=== PATIENT | male | born 1960 | race Caucasian/White ===

== ENCOUNTER 2023-05-10 10:05 | Inpatient (IN) ==
[2023-05-10] MEDS ORDERED: IOPAMIDOL 100 ML BOTTLE IV ONE (10:06)
[2023-05-10] MEDS: ONDANSETRON 4 MG/2 ML VIAL IV ONE (10:12)
[2023-05-10] MEDS: fentaNYL 100 MCG/2 ML VIAL IV ONE ×2 (10:20→12:21)
[2023-05-10] MEDS: 0.9 % SODIUM CHLORIDE 1,000 ML IV ONE (10:21)
[2023-05-10] MEDS: fentaNYL 100 MCG/2 ML VIAL ONE (10:21)
[2023-05-10] MEDS: HYDROmorphone 1 MG/ML SYRINGE ONE (10:22)
[2023-05-10] MEDS: ONDANSETRON 4 MG/2 ML VIAL ONE (10:22)
[2023-05-10 10:25] LABS: POC Calcium, Ionized 1.17 (1.16-1.32); POC Creatinine 0.9 (0.6-1.2); POC Potassium 3.4 (3.3-5.1)
[2023-05-10] MEDS: ceFAZolin 1 GM VIAL IV ONE (10:28)
[2023-05-10] MEDS: fentaNYL 100 MCG/2 ML VIAL IV PRN (10:45)
[2023-05-10 11:10] LABS: Basophils # (Auto) 0.12 K/mcL (0.00-0.30); Basophils % (Auto) 0.5 % (0.0-2.0); Eosinophils % (Auto) 3.4 % (0.0-7.0); Hematocrit 43.5 % (40.1-51.0); Hemoglobin 14.1 g/dL (13.7-17.5); Lymphocytes % (Auto) 15.4 % (15.5-49.0); Mean Cell Volume 89.5 fL (80.0-100.0); Mean Corpuscular HGB Conc 32.4 g/dL (31.0-36.0); Mean Platelet Volume 10.2 fL (8.8-12.5); Monocytes # (Auto) 1.21 K/mcL (0.10-0.90); Monocytes % (Auto) 5.2 % (1.0-12.0); Neutrophils % (Auto) 74.6 % (38.0-78.0); Platelet Count 358 K/mcL (140-440); RBC 4.86 M/mcL (4.63-6.08); Red Cell Distribution Width 13.8 % (11.5-14.5); WBC 23.4 K/mcL (4.5-11.0)
[2023-05-10 11:31] LABS: ALT/SGPT 14 U/L (<40); AST/SGOT 27 U/L (<40); Albumin 4.3 gm/dL (3.2-5.2); Albumin/Globulin Ratio 1.6 (1.0-2.3); Alcohol, Blood < 10.1 mg/dL; Alcohol,Blood < 0.010 gm/dL (<0.010); Alkaline Phosphatase 94 U/L (39-117); Bilirubin,Total 0.2 mg/dL (0.1-1.0); Blood Urea Nitrogen 19 mg/dL (8-23); Calcium 8.7 mg/dL (8.6-10.4); Carbon Dioxide 20 mmol/L (22-30); Chloride 103 mmol/L (96-108); Globulin 2.7 gm/dL (2.2-3.7); Glomerular Filtration Rate 80; Glucose 185 mg/dL (70-105)
[2023-05-10 12:03] LABS: INR 0.9 (0.9-1.1); Prothrombin Time 13.2 sec (11.9-14.5)
[2023-05-10] MEDS ORDERED: ONDANSETRON 4 MG/2 ML VIAL IV PRN ×2 (12:12→15:43)
[2023-05-10] MEDS: 0.9 % SODIUM CHLORIDE 250 ML IV SCH (12:18)
[2023-05-10] MEDS: 0.9 % SODIUM CHLORIDE 1,000 ML IV SCH (12:19)
[2023-05-10] MEDS: cefTRIAXone 2 GM in DEXTROSE 5% IN WATER 50 ML IV SCH (12:20)
[2023-05-10 12:24] LABS: ABG Methemoglobin 0.1 % (0.4-1.5); Total Hemoglobin 15.1 gm/Dl (13.5-16.5); VBG Base Excess -3 (-2-3); VBG HCO3 24.2 mmol/L (24.0-28.0); VBG Oxygen Saturation 72.1 % (40.0-70.0); VBG PCO2 51.5 mmHg (41.0-51.0); VBG PH 7.29 U (7.32-7.42); VBG PO2 42.3 mmHg (25.0-40.0); VBG Total CO2 25.8 mmol/L (25.0-29.0)
[2023-05-10] MEDS: DIPH,PERTUSS(ACELL),TET VAC/PF 0.5 ML SYRINGE IM ONE ×2 (12:28→17:17)
[2023-05-10] MEDS: IPRATROPIUM/ALBUTEROL 3 ML AMPUL.NEB NEB SCH (13:00)
[2023-05-10] MEDS: HYDROmorphone 1 MG/ML SYRINGE IV PRN (13:06)
[2023-05-10] MEDS ORDERED: fentaNYL 100 MCG/2 ML VIAL ONE (13:45)
[2023-05-10] MEDS ORDERED: PROPOFOL 200 MG/20 ML VIAL IV ONE ×2 (13:46→15:52)
[2023-05-10] MEDS ORDERED: KETAMINE 50 MG/ML Syringe IV ONE (14:10)
[2023-05-10] MEDS ORDERED: ROPIVACAINE HCL/PF 30 ML VIAL IJ ONE ×2 (14:46→14:48)
[2023-05-10] MEDS ORDERED: DEXAMETHASONE 10 MG/ML VIAL ONE (14:46)
[2023-05-10] MEDS ORDERED: MIDAZOLAM 2 MG/2 ML VIAL ONE (15:13)
[2023-05-10] MEDS ORDERED: ONDANSETRON 4 MG/2 ML VIAL ONE (15:32)
[2023-05-10] MEDS ORDERED: METOCLOPRAMIDE 10 MG/2 ML VIAL IV PRN (15:43)
[2023-05-10] MEDS ORDERED: IPRATROPIUM/ALBUTEROL 3 ML AMPUL.NEB NEB PRN (15:43)
[2023-05-10] MEDS ORDERED: fentaNYL 100 MCG/2 ML VIAL IV PRN (15:43)
[2023-05-10] MEDS ORDERED: HYDROmorphone 0.5 MG/0.5 ML SYRINGE IV PRN (15:43)
[2023-05-10] MEDS ORDERED: PROMETHAZINE 25 MG/ML VIAL IV PRN (15:43)
[2023-05-10] MEDS: 0.9 % SODIUM CHLORIDE 10 ML SYRINGE IV SCH (17:18)
[2023-05-10] MEDS: LACTATED RINGERS 1,000 ML IV SCH (17:34)
[2023-05-10] MEDS: METOCLOPRAMIDE 10 MG/2 ML VIAL IV SCH (18:05)
[2023-05-10 20:45] LABS: Appearance,Urine CLEAR (Clear); Bilirubin,Urine Negative (Negative); Color,Urine STRAW; Culture Indicated,Urine Yes; Glucose,Urine (UA) 150 mg/dL (Negative); Ketones,Urine Negative (Negative); Leukocyte Esterase,Urine 25 /uL (Negative); Mucus,Urine FEW /hpf; Nitrate,Urine Negative (Negative); Protein,Urine Negative (Negative); Urine RBC 12 /hpf (0-3); Urine Squamous Epithelial Cell < 1 /hpf (0-4); Urine WBC 13 /hpf (0-4); Urobilinogen,Urine Negative
[2023-05-10 20:53] LABS: Amphetamine Screen,Urine Suspect positive; Barbiturate Screen,Urine None detected; Benzodiazepines Screen,Urine Suspect positive; Cannabinoid Screen,Urine Suspect Positive; Cocaine Screen,Urine None detected; Opiate Screen,Urine None detected; Oxycodone, Urine Screen None detected; Phencyclidine Screen,Urine None detected
[2023-05-11 07:42] LABS: Basophils # (Auto) 0.01 K/mcL (0.00-0.30); Basophils % (Auto) 0.1 % (0.0-2.0); Eosinophils # (Auto) 0 K/mcL (0.00-0.70); Eosinophils % (Auto) 0 % (0.0-7.0); Hematocrit 42.2 % (40.1-51.0); Hemoglobin 13.6 g/dL (13.7-17.5); Lymphocytes # (Auto) 0.96 K/mcL (1.50-4.80); Mean Cell Volume 89.6 fL (80.0-100.0); Mean Corpuscular HGB Conc 32.2 g/dL (31.0-36.0); Mean Platelet Volume 10.2 fL (8.8-12.5); Monocytes # (Auto) 0.91 K/mcL (0.10-0.90); Monocytes % (Auto) 6.6 % (1.0-12.0); Platelet Count 292 K/mcL (140-440); RBC 4.71 M/mcL (4.63-6.08); Red Cell Distribution Width 13.7 % (11.5-14.5); WBC 13.7 K/mcL (4.5-11.0)
[2023-05-11] MEDS: hydrALAZINE 20 MG/ML VIAL IV PRN (11:17)
[2023-05-11] MEDS ORDERED: DEXMEDETOMIDINE HCL 200 MCG/2 ML VIAL ONE (13:31)
[2023-05-11] MEDS ORDERED: ROPIVACAINE HCL/PF 30 ML VIAL IJ ONE (13:31)
[2023-05-11] MEDS ORDERED: DEXAMETHASONE 10 MG/ML VIAL ONE (13:31)
[2023-05-12 06:20] LABS: Basophils # (Auto) 0.02 K/mcL (0.00-0.30); Basophils % (Auto) 0.1 % (0.0-2.0); Eosinophils # (Auto) 0.01 K/mcL (0.00-0.70); Eosinophils % (Auto) 0.1 % (0.0-7.0); Hematocrit 40.5 % (40.1-51.0); Hemoglobin 13.1 g/dL (13.7-17.5); Lymphocytes % (Auto) 11.3 % (15.5-49.0); Mean Corpuscular HGB Conc 32.3 g/dL (31.0-36.0); Mean Platelet Volume 10.2 fL (8.8-12.5); Monocytes # (Auto) 1.38 K/mcL (0.10-0.90); Monocytes % (Auto) 8.7 % (1.0-12.0); Neutrophils % (Auto) 79.6 % (38.0-78.0); Platelet Count 286 K/mcL (140-440); Red Cell Distribution Width 14.2 % (11.5-14.5); WBC 15.9 K/mcL (4.5-11.0)
[2023-05-12 06:39] LABS: ALT/SGPT 21 U/L (<40); AST/SGOT 41 U/L (<40); Albumin 3.7 gm/dL (3.2-5.2); Albumin/Globulin Ratio 1.4 (1.0-2.3); Alkaline Phosphatase 74 U/L (39-117); Bilirubin,Direct < 0.2 mg/dL (0-0.3); Bilirubin,Total 0.4 mg/dL (0.1-1.0); Blood Urea Nitrogen 14 mg/dL (8-23); Calcium 8.6 mg/dL (8.6-10.4); Carbon Dioxide 24 mmol/L (22-30); Chloride 105 mmol/L (96-108); Globulin 2.6 gm/dL (2.2-3.7); Glomerular Filtration Rate 95; Glucose 107 mg/dL (70-105); Lactate Dehydrogenase 263 U/L (135-225); Triglycerides 74 mg/dL (<150); Uric Acid 3.7 mg/dL (2.5-8.0)
[2023-05-13 06:24] LABS: Basophils # (Auto) 0.07 K/mcL (0.00-0.30); Basophils % (Auto) 0.6 % (0.0-2.0); Eosinophils # (Auto) 0.33 K/mcL (0.00-0.70); Eosinophils % (Auto) 2.7 % (0.0-7.0); Hematocrit 39.8 % (40.1-51.0); Hemoglobin 12.5 g/dL (13.7-17.5); Lymphocytes # (Auto) 1.96 K/mcL (1.50-4.80); Lymphocytes % (Auto) 16.3 % (15.5-49.0); Mean Cell Volume 91.9 fL (80.0-100.0); Mean Corpuscular HGB Conc 31.4 g/dL (31.0-36.0); Mean Platelet Volume 9.8 fL (8.8-12.5); Monocytes # (Auto) 0.99 K/mcL (0.10-0.90); Monocytes % (Auto) 8.2 % (1.0-12.0); Platelet Count 282 K/mcL (140-440); RBC 4.33 M/mcL (4.63-6.08); Red Cell Distribution Width 14.2 % (11.5-14.5)
[2023-05-13] MEDS: METOCLOPRAMIDE 10 MG TABLET PO SCH (17:53)
[2023-05-14 06:30] LABS: Basophils # (Auto) 0.06 K/mcL (0.00-0.30); Basophils % (Auto) 0.6 % (0.0-2.0); Eosinophils % (Auto) 6.9 % (0.0-7.0); Hemoglobin 13.7 g/dL (13.7-17.5); Lymphocytes # (Auto) 1.82 K/mcL (1.50-4.80); Mean Cell Volume 89.2 fL (80.0-100.0); Mean Corpuscular HGB Conc 32.6 g/dL (31.0-36.0); Mean Platelet Volume 9.6 fL (8.8-12.5); Monocytes # (Auto) 0.81 K/mcL (0.10-0.90); Neutrophils % (Auto) 66.2 % (38.0-78.0); Platelet Count 320 K/mcL (140-440); RBC 4.71 M/mcL (4.63-6.08); Red Cell Distribution Width 13.4 % (11.5-14.5); WBC 10.1 K/mcL (4.5-11.0)
[2023-05-14] MEDS: oxyCODONE IR 5 MG TABLET PO PRN (19:20)
[2023-05-15 05:53] LABS: Basophils # (Auto) 0.06 K/mcL (0.00-0.30); Basophils % (Auto) 0.5 % (0.0-2.0); Eosinophils # (Auto) 0.71 K/mcL (0.00-0.70); Eosinophils % (Auto) 5.8 % (0.0-7.0); Hematocrit 41.6 % (40.1-51.0); Hemoglobin 13.6 g/dL (13.7-17.5); Lymphocytes # (Auto) 2.01 K/mcL (1.50-4.80); Lymphocytes % (Auto) 16.4 % (15.5-49.0); Mean Cell Volume 88.5 fL (80.0-100.0); Mean Corpuscular HGB Conc 32.7 g/dL (31.0-36.0); Mean Platelet Volume 9.4 fL (8.8-12.5); Monocytes # (Auto) 1.13 K/mcL (0.10-0.90); Monocytes % (Auto) 9.2 % (1.0-12.0); Neutrophils % (Auto) 67.9 % (38.0-78.0); Platelet Count 332 K/mcL (140-440); Red Cell Distribution Width 13.2 % (11.5-14.5); WBC 12.2 K/mcL (4.5-11.0)
[2023-05-16] MEDS: NICOTINE 21 MG PATCH TOPICAL SCH (14:06)
[2023-05-17 03:11] LABS: Amphetamine Screen Positive
[2023-05-17 07:15] LABS: ALT/SGPT 45 U/L (<40); AST/SGOT 35 U/L (<40); Albumin 3.5 gm/dL (3.2-5.2); Albumin/Globulin Ratio 1.5 (1.0-2.3); Alkaline Phosphatase 99 U/L (39-117); Bilirubin,Direct < 0.2 mg/dL (0-0.3); Bilirubin,Total 0.4 mg/dL (0.1-1.0); Blood Urea Nitrogen 17 mg/dL (8-23); Calcium 8.4 mg/dL (8.6-10.4); Carbon Dioxide 24 mmol/L (22-30); Chloride 99 mmol/L (96-108); Globulin 2.3 gm/dL (2.2-3.7); Glomerular Filtration Rate 91; Glucose 99 mg/dL (70-105); Lactate Dehydrogenase 203 U/L (135-225); Phosphorous 2.7 mg/dL (2.5-4.5); Triglycerides 57 mg/dL (<150); Uric Acid 5.2 mg/dL (2.5-8.0)
[2023-05-17 07:20] LABS: Basophils # (Auto) 0.09 K/mcL (0.00-0.30); Basophils % (Auto) 0.5 % (0.0-2.0); Eosinophils # (Auto) 0.85 K/mcL (0.00-0.70); Eosinophils % (Auto) 4.6 % (0.0-7.0); Hematocrit 40.6 % (40.1-51.0); Hemoglobin 12.9 g/dL (13.7-17.5); Lymphocytes # (Auto) 1.76 K/mcL (1.50-4.80); Lymphocytes % (Auto) 9.6 % (15.5-49.0); Mean Cell Volume 92.7 fL (80.0-100.0); Mean Corpuscular HGB Conc 31.8 g/dL (31.0-36.0); Mean Platelet Volume 9.6 fL (8.8-12.5); Monocytes % (Auto) 8.7 % (1.0-12.0); Neutrophils % (Auto) 76.3 % (38.0-78.0); Platelet Count 328 K/mcL (140-440); RBC 4.38 M/mcL (4.63-6.08); Red Cell Distribution Width 13.4 % (11.5-14.5); WBC 18.3 K/mcL (4.5-11.0)
[2023-05-18 10:39] LABS: Basophils # (Auto) 0.11 K/mcL (0.00-0.30); Basophils % (Auto) 0.7 % (0.0-2.0); Eosinophils # (Auto) 0.68 K/mcL (0.00-0.70); Eosinophils % (Auto) 4.4 % (0.0-7.0); Hematocrit 42.8 % (40.1-51.0); Hemoglobin 13.7 g/dL (13.7-17.5); Lymphocytes # (Auto) 1.89 K/mcL (1.50-4.80); Lymphocytes % (Auto) 12.4 % (15.5-49.0); Mean Cell Volume 90.3 fL (80.0-100.0); Mean Platelet Volume 9.2 fL (8.8-12.5); Monocytes # (Auto) 1.16 K/mcL (0.10-0.90); Monocytes % (Auto) 7.6 % (1.0-12.0); Neutrophils % (Auto) 74.6 % (38.0-78.0); Platelet Count 406 K/mcL (140-440); RBC 4.74 M/mcL (4.63-6.08); Red Cell Distribution Width 13.2 % (11.5-14.5); WBC 15.3 K/mcL (4.5-11.0)
[2023-05-20 13:10] LABS: Alprazolam, Urine Negative (Cutoff=100); Clonazepam, Urine Negative (Cutoff=100); Flurazepam, Urine Negative (Cutoff=100); Lorazepam, Urine Negative (Cutoff=100); Midazolam Confirm, Urine 653 ng/mL (Cutoff=100); Midazolam, Urine Positive; Nordiazepam, Urine Negative (Cutoff=100); Oxazepam, Urine Negative (Cutoff=100); Temazepam, Urine Negative (Cutoff=100); Triazolam, Urine Negative (Cutoff=100)
== END 2023-05-18 16:07 | disposition home or self-care (01) | DRG 964 ==
LOC: ED 10:05 → SUR 14:23 → ICU 16:59 → MEDSUR 05-13 15:43
PROVIDERS: ADMIT Family Medicine Adult Medicine; ATTEND Surgery Surgical Critical Care